=== PATIENT | male | born 1940 | race Two or more races ===

== ENCOUNTER 2018-06-30 14:00 | Inpatient (IN) | payer OTHER ==
[~2018-06-30] VITALS: Ht 170.2 cm; Wt 68.0 kg
[2018-06-30] MEDS ORDERED: PROTONIX40 M1 PO (14:40)
[2018-06-30] MEDS ORDERED: CARAFATE1 GM PO (14:40)
[2018-07-04] MEDS ORDERED: PANTOPRAZOLE SO40 MG PO (11:29)
== END 2018-07-04 13:03 | disposition home or self-care (01) | DRG 811 ==
LOC: ER 14:00 → MEDI 07-01 13:08 → SEC-K 07-01 13:08 → MEDI 07-01 15:38
PROC: 30233N1 Transfusion of Nonautologous Red Blood Cells into Peripheral Vein, Percutaneous Approach (ICD-10-PCS; 2018-07-01)
PROC: BW24Y0Z Computerized Tomography (CT Scan) of Chest and Abdomen using Other Contrast, Unenhanced and Enhanced (ICD-10-PCS; principal; 2018-07-02)
PROC: 0W3P8ZZ Control Bleeding in Gastrointestinal Tract, Via Natural or Artificial Opening Endoscopic (ICD-10-PCS; 2018-07-02)
DX: D50.0 Iron deficiency anemia secondary to blood loss (chronic) (principal); K25.0 Acute gastric ulcer with hemorrhage; C16.8 Malignant neoplasm of overlapping sites of stomach; I10 Essential (primary) hypertension; K80.80 Other cholelithiasis without obstruction; K76.0 Fatty (change of) liver, not elsewhere classified; C61 Malignant neoplasm of prostate

== ENCOUNTER → 2018-07-09 | Outpatient (CLI) | payer OTHER ==
[~2018-07-09] MED LIST: CARAFATE1 GM PO; PANTOPRAZOLE SO40 MG PO; PROTONIX40 M1 PO
== END | disposition home or self-care (01) ==
LOC: NUCLEAR 05-28 14:30
DX: D61.9 Aplastic anemia, unspecified (principal); D50.0 Iron deficiency anemia secondary to blood loss (chronic); C61 Malignant neoplasm of prostate; K25.7 Chronic gastric ulcer without hemorrhage or perforation; M81.0 Age-related osteoporosis without current pathological fracture; K90.89 Other intestinal malabsorption; K91.2 Postsurgical malabsorption, not elsewhere classified
CPT/HCPCS: 78816; A9552

== ENCOUNTER 2019-03-16 09:47 | Outpatient (CLI) | payer OTHER | END 2019-03-16 11:10 | disposition home or self-care (01) | LOC: SONOGRAMA 09:47 | DX: E04.1 Nontoxic single thyroid nodule (principal) ==

== ENCOUNTER 2019-07-21 08:07 | Outpatient (CLI) | payer OTHER ==
[2019-07-22] MEDS ORDERED: GAVISCON 80-141 EACH (19:02)
[2019-07-22] MEDS ORDERED: ABATRACE CAPSU1 EACH (19:05)
== END 2019-07-21 08:12 | disposition home or self-care (01) ==
LOC: NUCLEAR 08:07
DX: C16.2 Malignant neoplasm of body of stomach (principal); E86.0 Dehydration
CPT/HCPCS: 78815; A9552

== ENCOUNTER 2019-07-22 18:32 | Emergency (ER) | payer OTHER ==
[~2019-07-22] VITALS: Ht 162.6 cm; Wt 62.1 kg
[2019-07-22] MEDS ORDERED: GAVISCON 80-141 EACH (19:02)
[2019-07-22] MEDS ORDERED: ABATRACE CAPSU1 EACH (19:05)
== END 2019-07-22 22:36 | disposition home or self-care (01) ==
LOC: ER 18:32
DX: G89.3 Neoplasm related pain (acute) (chronic) (principal); C16.9 Malignant neoplasm of stomach, unspecified; R10.13 Epigastric pain

== ENCOUNTER 2019-08-24 08:56 | Inpatient (IN) | payer OTHER ==
[~2019-08-24] VITALS: Ht 167.6 cm; Wt 62.6 kg
[~2019-08-24 08:56] MED LIST changes: +ABATRACE CAPSU1 EACH; +GAVISCON 80-141 EACH
--- NOTE | 2019-08-24 09:16 | NUR ---
MASCULINO DE 78 ANOS DE EDAD SE OBSERVA ALERTA, ORIENTADO X3, CONCIENTE, PALIDO CANSADO Y DEBIL. REFIERE MAREOS, Y TENER LA HGB 7.4MG/DL. REFIERE QUE DR. WASHBURN, INTERNISTA LO REFIRIO A JANY DE EMERGENCIAS. SE LE COLOCA MASCARILLA PROTECTIVA, SE TRASLADA AL AREA DE OBSERVACION #12 Y SE LE NOTIFICA A DR. RANGEL SOBRE EL PACIENTE.
[2019-08-26] MEDS ORDERED: CARAFATE1 GM/10 ML PO (14:38)
[2019-08-26] MEDS ORDERED: Neurin-Sl Tablet Sl SL (14:39)
== END 2019-08-26 15:39 | disposition home or self-care (01) | DRG 384 ==
LOC: ER 08:56 → MEDI 14:54 → SEC-K 14:54 → MEDI 22:08
PROVIDERS: ADMIT Internal Medicine Geriatric Medicine
PROC: BB24ZZZ Computerized Tomography (CT Scan) of Bilateral Lungs (ICD-10-PCS; 2019-08-24)
PROC: 30233N1 Transfusion of Nonautologous Red Blood Cells into Peripheral Vein, Percutaneous Approach (ICD-10-PCS; 2019-08-24)
PROC: 0DB68ZX Excision of Stomach, Via Natural or Artificial Opening Endoscopic, Diagnostic (ICD-10-PCS; principal; 2019-08-26)
DX: K25.3 Acute gastric ulcer without hemorrhage or perforation (principal); C16.8 Malignant neoplasm of overlapping sites of stomach; J90 Pleural effusion, not elsewhere classified; D50.0 Iron deficiency anemia secondary to blood loss (chronic)

== ENCOUNTER 2019-08-28 08:28 | Emergency (ER) | payer OTHER ==
[~2019-08-28] VITALS: Ht 167.6 cm; Wt 62.1 kg
[~2019-08-28 08:28] MED LIST changes: +CARAFATE1 GM/10 ML PO; +Neurin-Sl Tablet Sl SL
== END 2019-08-28 12:58 | disposition home or self-care (01) ==
LOC: ER 08:28
DX: B34.9 Viral infection, unspecified (principal); J32.8 Other chronic sinusitis

== ENCOUNTER 2019-08-31 13:36 | Emergency (ER) | payer OTHER ==
[~2019-08-31] VITALS: Ht 167.6 cm; Wt 63.0 kg
== END 2019-08-31 19:54 | disposition home or self-care (01) ==
LOC: ER 13:36
DX: K62.5 Hemorrhage of anus and rectum (principal); R10.31 Right lower quadrant pain; R10.32 Left lower quadrant pain; J90 Pleural effusion, not elsewhere classified; K80.80 Other cholelithiasis without obstruction

== ENCOUNTER 2020-01-19 14:57 | Inpatient (IN) | payer OTHER ==
[~2020-01-19] VITALS: Ht 172.7 cm; Wt 61.2 kg
--- NOTE | 2020-01-19 15:16 | NUR ---
PACIENTE ALERTA Y ORIENTADO X3. REFIERE VENIR POR QUE DESDE ZEUS ESTA CON VOMITOS, NAUSEAS Y DOLOR EN EL FLANCO DERECHO. PACIENTE REFIERE EN LAS ULTIMAS 24 HORAS MO PRESENTADO MAS DE CUATRO VOMITOS Y NO MO PODIDO INGERIR NADA. SE UBICA EN RONAL CON BARANDAS ELEVADAS.
--- NOTE | 2020-01-19 17:56 | NUR ---
EVALUA PTE. SE ORIENTA A PTE SOBRE TX MEDICO. PTE REFIERE COMPRENDER. SE REALIZAN MUESTRAS DE LABORATORIO BAJO MEDIDAS ASEPTICAS. SE ADMINISTRAN MEDICAMENTOS TORY ORDEN MEDICA. SE NOTIFICA CT.
[2020-01-20] MEDS ORDERED: SYSTANE ULTRA 010 ML (15:36)
[2020-01-20] MEDS ORDERED: KETOTIFEN FUMARA5 ML (15:36)
[2020-01-20] MEDS ORDERED: ABANEU-SL TABL1 EACH (15:37)
[2020-01-22] MEDS ORDERED: CARAFATE1 GM/10 ML PO (10:30)
[2020-01-22] MEDS ORDERED: PROTONIX40 MG PO (10:30)
[2020-01-22] MEDS ORDERED: ABANEU-SL TABL1 EACH PO (10:30)
== END 2020-01-22 13:39 | disposition home or self-care (01) | DRG 446 ==
LOC: ER 14:57 → SEC-K 21:09 → SURH 23:10
PROVIDERS: ADMIT Internal Medicine Geriatric Medicine; ATTEND Internal Medicine Geriatric Medicine
DX: K80.00 Calculus of gallbladder with acute cholecystitis without obstruction (principal); D69.6 Thrombocytopenia, unspecified; Z98.0 Intestinal bypass and anastomosis status; Z85.028 Personal history of other malignant neoplasm of stomach; Z53.29 Procedure and treatment not carried out because of patient's decision for other reasons

== ENCOUNTER 2020-01-28 08:47 | Inpatient (IN) | payer OTHER ==
[~2020-01-28] VITALS: Ht 165.1 cm; Wt 58.5 kg
[~2020-01-28 08:47] MED LIST changes: +ABANEU-SL TABL1 EACH; +ABANEU-SL TABL1 EACH PO; +KETOTIFEN FUMARA5 ML; +PROTONIX40 MG PO; +SYSTANE ULTRA 010 ML
--- NOTE | 2020-01-28 09:04 | NUR ---
PTE ALERTA Y ORIENTADO X 3 ESFERAS, REFIERE VOMITOS HACE 3 ADAMS APROXIMADAMENTE. PTE INDICA FUE DADO DE CARLOS EL SABADO YA QUE TENIA PROBLEMAS CON LA VESICULA. SE UBICA EN AREA DE OBSERVACION.
--- NOTE | 2020-01-28 09:49 | NUR ---
PACIENTE EALERTA EVALUADO POR EL DR. CHRISTINE , MISS. [place] DELMI MUESTRAS CON NELLIE MEIDDAS ASEPTICAS , SE LE ADMINTRAN MEDICAMNTO Y SE MANTIENENE OBSERVACION POR CAMBIOS EN POSADAS CONDICON.
--- NOTE | 2020-01-28 12:50 | NUR ---
SE ORIENTA A PACIENTE SOBRE PROCESO DE CARLOS. PACIENTE REFIERE NO TOLERA NADA EN [place]O. SE NOTIFICA A DR. IYER Y SE ORIENTA SOBRE INGERIR ALIMENTOS PARA DILLON SI TOLERA.
--- NOTE | 2020-01-28 13:39 | NUR ---
PACIENTE REFIERE INGERIO ALIMENTOS Y COMENZO A VOMITAR.
--- NOTE | 2020-01-28 15:32 | NUR ---
SE RECIBE PTE ALERTA Y ORIENTADO X 3 ESFERAS EN CAMA CON BARANDAS ELEVADAS POR SEGURIDAD. BUEN PATRON RESPIRATORIO. RECIBIENDO IV'S 0.9NSS BAJANDO A 150ML/HR AREA DE VENOPUNCION EN BRAZO DERECHO AREA PATTI DE EDEMA Y ERITEMA. PENDIENTE CONSULTA CON . SE MANTIENE EN OBSERVACION POR CAMBIOS EN CONDICION MEDICA.
[2020-02-08] MEDS ORDERED: PROTONIX40 MG PO (14:05)
[2020-02-08] MEDS ORDERED: CARAFATE1 GM/10 ML PO (14:05)
[2020-02-08] MEDS ORDERED: GAS RELIEF125 MG PO (14:05)
[2020-02-08] MEDS ORDERED: INTESTINEX680 M1 PO (14:05)
[2020-02-08] MEDS ORDERED: LIDODERM1 EACH TOP (14:05)
[2020-02-08] MEDS ORDERED: PEPCID AC20 MG PO (14:05)
== END 2020-02-08 16:59 | disposition home or self-care (01) | DRG 445 ==
LOC: ER 08:47 → MEDJ 16:12 → MEDI 16:12
PROVIDERS: ADMIT Internal Medicine Geriatric Medicine; ATTEND Internal Medicine Geriatric Medicine
PROC: 05HY33Z Insertion of Infusion Device into Upper Vein, Percutaneous Approach (ICD-10-PCS; 2020-01-29)
PROC: 0DJ08ZZ Inspection of Upper Intestinal Tract, Via Natural or Artificial Opening Endoscopic (ICD-10-PCS; 2020-01-31)
PROC: 0DJ08ZZ Inspection of Upper Intestinal Tract, Via Natural or Artificial Opening Endoscopic (ICD-10-PCS; 2020-02-02)
PROC: BW21YZZ Computerized Tomography (CT Scan) of Abdomen and Pelvis using Other Contrast (ICD-10-PCS; principal; 2020-02-04)
PROC: CF141ZZ Planar Nuclear Medicine Imaging of Gallbladder using Technetium 99m (Tc-99m) (ICD-10-PCS; 2020-02-07)
DX: K80.20 Calculus of gallbladder without cholecystitis without obstruction (principal); K31.1 Adult hypertrophic pyloric stenosis; C16.9 Malignant neoplasm of stomach, unspecified; M81.0 Age-related osteoporosis without current pathological fracture; M54.5 Low back pain; R11.2 Nausea with vomiting, unspecified; E86.0 Dehydration; C61 Malignant neoplasm of prostate; D64.9 Anemia, unspecified; R10.13 Epigastric pain; Z98.0 Intestinal bypass and anastomosis status

== ENCOUNTER 2020-03-21 13:08 | Emergency (ER) | payer OTHER ==
[~2020-03-21] VITALS: Ht 167.6 cm; Wt 57.2 kg
[~2020-03-21 13:08] MED LIST changes: +GAS RELIEF125 MG PO; +INTESTINEX680 M1 PO; +LIDODERM1 EACH TOP; +PEPCID AC20 MG PO
== END 2020-03-22 13:17 | disposition home or self-care (01) ==
LOC: ER 13:08
DX: E86.0 Dehydration (principal); R11.2 Nausea with vomiting, unspecified; Z85.00 Personal history of malignant neoplasm of unspecified digestive organ

== ENCOUNTER 2020-04-01 18:06 | Emergency (ER) | payer OTHER ==
[~2020-04-01] VITALS: Ht 162.6 cm; Wt 59.0 kg
[2020-04-02] MEDS ORDERED: ONDANSETRON ODT4 MG SL (06:35)
[2020-04-02] MEDS ORDERED: PEPCID COMPLET1 EACH PO (06:35)
== END 2020-04-02 09:21 | disposition home or self-care (01) ==
LOC: ER 18:06
DX: E86.0 Dehydration (principal); C16.9 Malignant neoplasm of stomach, unspecified; R10.84 Generalized abdominal pain; R11.2 Nausea with vomiting, unspecified

== ENCOUNTER 2020-10-12 10:06 | Outpatient (CLI) | payer OTHER ==
[~2020-10-12 10:06] MED LIST changes: +ONDANSETRON ODT4 MG SL; +PEPCID COMPLET1 EACH PO
== END 2020-10-12 10:07 | disposition home or self-care (01) ==
LOC: NUCLEAR 10:06
PROVIDERS: ATTEND Internal Medicine Hematology & Oncology
DX: C16.2 Malignant neoplasm of body of stomach (principal); E86.0 Dehydration; D50.0 Iron deficiency anemia secondary to blood loss (chronic); M80.00XD Age-related osteoporosis with current pathological fracture, unspecified site, subsequent encounter for fracture with routine healing; S32.010D Wedge compression fracture of first lumbar vertebra, subsequent encounter for fracture with routine healing
CPT/HCPCS: 78815; A9552

== ENCOUNTER 2021-04-07 13:47 | Emergency (ER) | payer OTHER ==
[~2021-04-07] VITALS: Ht 167.6 cm; Wt 54.9 kg
[2021-04-08] MEDS ORDERED: ZOFRAN8 MG PO (16:39)
[2021-04-08] MEDS ORDERED: CARAFATE1 GM/10 ML PO (16:39)
[2021-04-08] MEDS ORDERED: PROTONIX40 MG PO (16:39)
== END 2021-04-08 17:22 | disposition home or self-care (01) ==
LOC: ER 13:47
DX: K29.00 Acute gastritis without bleeding (principal); R11.2 Nausea with vomiting, unspecified; C16.2 Malignant neoplasm of body of stomach

== ENCOUNTER 2021-05-20 11:39 | Emergency (ER) | payer OTHER ==
[~2021-05-20] VITALS: Ht 167.6 cm; Wt 54.4 kg
[~2021-05-20 11:39] MED LIST changes: +ZOFRAN8 MG PO
== END 2021-05-20 17:17 | disposition home or self-care (01) ==
LOC: ER 11:39
DX: E86.0 Dehydration (principal); E87.8 Other disorders of electrolyte and fluid balance, not elsewhere classified; C16.9 Malignant neoplasm of stomach, unspecified; R11.11 Vomiting without nausea; R10.13 Epigastric pain

== ENCOUNTER 2021-06-15 10:09 | Outpatient (CLI) | payer OTHER | END 2021-06-15 10:16 | disposition home or self-care (01) | LOC: RAD 10:09 | PROVIDERS: ATTEND Internal Medicine | DX: M54.6 Pain in thoracic spine (principal); M54.2 Cervicalgia; M54.59 Other low back pain ==

== ENCOUNTER 2021-06-29 13:45 | Inpatient (IN) | payer OTHER ==
[~2021-06-29] VITALS: Ht 167.6 cm; Wt 54.4 kg
[2021-07-05] MEDS ORDERED: FAMOTIDINE20 MG (15:15)
[2021-07-05] MEDS ORDERED: GABAPENTIN100 M2 (15:15)
[2021-07-05] MEDS ORDERED: METOCLOPRAMIDE10 MG (15:16)
[2021-07-05] MEDS ORDERED: ARTHRITIS PAIN650 M1 (15:16)
[2021-07-05] MEDS ORDERED: RESTORIL15 MG (15:16)
[2021-07-06] MEDS ORDERED: PROTONIX40 MG PO (12:18)
[2021-07-06] MEDS ORDERED: FAMOTIDINE20 MG PO (12:18)
[2021-07-06] MEDS ORDERED: SPIRONOLACTONE25 MG PO (12:18)
[2021-07-06] MEDS ORDERED: CARAFATE1 GM PO (12:18)
[2021-07-06] MEDS ORDERED: ZOFRAN8 MG PO (12:18)
[2021-07-06] MEDS ORDERED: ABANEU-SL TABL1 EACH SL (12:18)
[2021-07-06] MEDS ORDERED: METOCLOPRAMIDE10 MG PO (12:18)
== END 2021-07-06 14:42 | disposition home or self-care (01) | DRG 641 ==
LOC: ER 13:45 → MEDI 21:09 → MEDJ 21:09
PROVIDERS: ADMIT Internal Medicine Geriatric Medicine; ATTEND Internal Medicine Geriatric Medicine
PROC: 05HY33Z Insertion of Infusion Device into Upper Vein, Percutaneous Approach (ICD-10-PCS; principal; 2021-06-29)
PROC: BW2110Z Computerized Tomography (CT Scan) of Abdomen and Pelvis using Low Osmolar Contrast, Unenhanced and Enhanced (ICD-10-PCS; 2021-06-30)
PROC: 0W9G3ZZ Drainage of Peritoneal Cavity, Percutaneous Approach (ICD-10-PCS; 2021-07-02)
PROC: 0DB58ZX Excision of Esophagus, Via Natural or Artificial Opening Endoscopic, Diagnostic (ICD-10-PCS; 2021-07-03)
PROC: 0DB68ZX Excision of Stomach, Via Natural or Artificial Opening Endoscopic, Diagnostic (ICD-10-PCS; 2021-07-03)
PROC: 0DBA8ZX Excision of Jejunum, Via Natural or Artificial Opening Endoscopic, Diagnostic (ICD-10-PCS; 2021-07-03)
PROC: BW30Y0Z Magnetic Resonance Imaging (MRI) of Abdomen using Other Contrast, Unenhanced and Enhanced (ICD-10-PCS; 2021-07-04)
DX: E86.0 Dehydration (principal); C16.9 Malignant neoplasm of stomach, unspecified; K76.6 Portal hypertension; B19.10 Unspecified viral hepatitis B without hepatic coma; K31.1 Adult hypertrophic pyloric stenosis; R18.8 Other ascites; D64.9 Anemia, unspecified; K20.80 Other esophagitis without bleeding; Z98.0 Intestinal bypass and anastomosis status; R11.10 Vomiting, unspecified; Z20.822 Contact with and (suspected) exposure to COVID-19
CPT/HCPCS: 74182

== ENCOUNTER 2021-07-29 14:21 | Inpatient (IN) | payer OTHER ==
[~2021-07-29] VITALS: Ht 167.6 cm; Wt 53.5 kg
[~2021-07-29 14:21] MED LIST changes: +ABANEU-SL TABL1 EACH SL; +ARTHRITIS PAIN650 M1; +FAMOTIDINE20 MG; +FAMOTIDINE20 MG PO; +GABAPENTIN100 M2; +METOCLOPRAMIDE10 MG; +METOCLOPRAMIDE10 MG PO; +RESTORIL15 MG; +SPIRONOLACTONE25 MG PO
[2021-07-31] MEDS ORDERED: GABAPENTIN100 M2 (11:08)
[2021-07-31] MEDS ORDERED: SOD FER GL62.5 MG/5 (11:08)
[2021-07-31] MEDS ORDERED: PANTOPRAZOLE SO40 MG (11:08)
[2021-07-31] MEDS ORDERED: ONDANSETRON ODT8 MG (11:08)
[2021-07-31] MEDS ORDERED: METOCLOPRAMIDE10 MG (11:08)
[2021-07-31] MEDS ORDERED: BUSPIRONE HCL5 MG (11:09)
[2021-07-31] MEDS ORDERED: ARTHRITIS PAIN650 M1 (11:09)
[2021-07-31] MEDS ORDERED: METHYLPREDNISOL40 MG (11:09)
[2021-07-31] MEDS ORDERED: DIPHENHYDR50 MG/1 M1 (11:09)
[2021-07-31] MEDS ORDERED: TRAZODONE HCL50 MG (11:09)
[2021-07-31] MEDS ORDERED: ADULT GLYCERIN1 EACH (11:09)
[2021-07-31] MEDS ORDERED: RESTORIL15 MG (11:10)
[2021-07-31] MEDS ORDERED: PROLIA60 MG/1 ML (11:10)
[2021-07-31] MEDS ORDERED: LIDOCAINE1 EACH (11:10)
[2021-08-01] MEDS ORDERED: SPIRONOLACTONE25 MG PO (13:36)
[2021-08-01] MEDS ORDERED: PANTOPRAZOLE SO40 MG PO (13:36)
[2021-08-01] MEDS ORDERED: LASIX20 MG PO (13:36)
[2021-08-01] MEDS ORDERED: CARAFATE1 GM PO (13:36)
[2021-08-01] MEDS ORDERED: FAMOTIDINE20 MG PO (13:36)
== END 2021-08-01 14:59 | disposition home or self-care (01) | DRG 641 ==
LOC: ER 14:21 → MEDI 07-30 11:21
PROVIDERS: ADMIT Internal Medicine Geriatric Medicine; ATTEND Internal Medicine Geriatric Medicine
PROC: 0W9G3ZX Drainage of Peritoneal Cavity, Percutaneous Approach, Diagnostic (ICD-10-PCS; principal; 2021-07-31)
DX: E86.0 Dehydration (principal); R18.8 Other ascites; C16.9 Malignant neoplasm of stomach, unspecified; C78.7 Secondary malignant neoplasm of liver and intrahepatic bile duct; D64.9 Anemia, unspecified; E87.8 Other disorders of electrolyte and fluid balance, not elsewhere classified; Z20.822 Contact with and (suspected) exposure to COVID-19
CPT/HCPCS: 72196; 74182

== ENCOUNTER 2021-08-12 12:31 | Inpatient (IN) | payer OTHER ==
[~2021-08-12] VITALS: Ht 167.6 cm; Wt 54.4 kg
[~2021-08-12 12:31] MED LIST changes: +ADULT GLYCERIN1 EACH; +BUSPIRONE HCL5 MG; +DIPHENHYDR50 MG/1 M1; +LASIX20 MG PO; +LIDOCAINE1 EACH; +METHYLPREDNISOL40 MG; +ONDANSETRON ODT8 MG; +PANTOPRAZOLE SO40 MG; +PROLIA60 MG/1 ML; +SOD FER GL62.5 MG/5; +TRAZODONE HCL50 MG
--- NOTE | 2021-08-12 13:05 | NUR ---
SE RECIBE PACIENTE ALERTA, ORIENTADO X 3 ESFERAS REFIERE TENER VOMITOS DESDE ZEUS, SE ESTIMAN S/V SE UBICA EN AREA DE OBSERVACION.
--- NOTE | 2021-08-12 15:33 | NUR ---
SE REALIZA CANALIZACION Y DELMI DE MUESTRAS A PACIENTE BAJOMEDIDAS ASEPTICAS Y DE SEGURIDAD. SE ADMINISTRAN MEDICAMENTOS TORY ORDEN MEDICA. SE ORIENTA A PACIENTE Y FAMILAIR ACERCA DEL TRATAMIENTO OFRECIDO EN JANY DE EMERGENCIAS. TRATAMIENTO OFRECDIO POR MISS Tello ALMANZA. SE MANTIENE PACIENTE EN OBSERVACION
--- NOTE | 2021-08-13 07:07 | NUR ---
SE RECIBE PACIENTE ALERTA Y ORIENTADO X 3, IV FLUIDS PATENTES PATTI DE EDEMAS Y ENROJECIMIENTOS. PACIENTE EN AREA DE AISLAMIENTO POR COVID +. PENDIENTE CONSULTA CON DRA PHILIPPE.
[2021-08-15] MEDS ORDERED: VITAMIN C500 M1 PO (17:39)
[2021-08-15] MEDS ORDERED: CARAFATE1 GM PO (17:39)
[2021-08-15] MEDS ORDERED: ZINC SULFATE50 M1 PO (17:39)
[2021-08-15] MEDS ORDERED: PANTOPRAZOLE SO40 MG PO (17:39)
[2021-08-15] MEDS ORDERED: MELATONIN5 M2 PO (17:39)
[2021-08-15] MEDS ORDERED: ZOFRAN8 MG PO (17:39)
== END 2021-08-15 17:44 | disposition home or self-care (01) | DRG 178 ==
LOC: ER 12:31 → MEDJ 08-13 18:52
PROVIDERS: ADMIT Internal Medicine Geriatric Medicine; ATTEND Internal Medicine Geriatric Medicine
PROC: BW21YZZ Computerized Tomography (CT Scan) of Abdomen and Pelvis using Other Contrast (ICD-10-PCS; 2021-08-13)
PROC: 4A12X4Z Monitoring of Cardiac Electrical Activity, External Approach (ICD-10-PCS; principal; 2021-08-14)
DX: U07.1 COVID-19 (principal); C16.9 Malignant neoplasm of stomach, unspecified; R18.8 Other ascites; K74.69 Other cirrhosis of liver; E86.0 Dehydration; E87.8 Other disorders of electrolyte and fluid balance, not elsewhere classified; R10.13 Epigastric pain; Z98.0 Intestinal bypass and anastomosis status

== ENCOUNTER 2021-09-12 15:33 | Inpatient (IN) | payer OTHER ==
[~2021-09-12] VITALS: Ht 167.6 cm
[~2021-09-12 15:33] MED LIST changes: +MELATONIN5 M2 PO; +VITAMIN C500 M1 PO; +ZINC SULFATE50 M1 PO
[2021-09-12] MEDS ORDERED: LASIX20 MG (16:45)
[2021-09-12] MEDS ORDERED: CLONAZEPAM0.5 MG (16:46)
[2021-09-12] MEDS ORDERED: PEPCID AC10 MG (16:46)
[2021-09-14] MEDS ORDERED: SPIRONOLACTONE25 MG (11:46)
[2021-09-14] MEDS ORDERED: ONDANSETRON ODT8 MG (11:46)
[2021-09-14] MEDS ORDERED: METOCLOPRAMIDE10 MG (11:46)
[2021-09-14] MEDS ORDERED: GABAPENTIN100 M2 (11:46)
[2021-09-14] MEDS ORDERED: DIPHENHYDR50 MG/1 M1 (11:47)
[2021-09-14] MEDS ORDERED: SOD FER GL62.5 MG/5 (11:47)
[2021-09-19] MEDS ORDERED: ABANEU-SL TABL1 EACH SL (13:03)
[2021-09-19] MEDS ORDERED: CARAFATE1 GM PO (13:03)
[2021-09-19] MEDS ORDERED: FAMOTIDINE20 MG PO (13:03)
[2021-09-19] MEDS ORDERED: MELATONIN5 M2 PO (13:03)
[2021-09-19] MEDS ORDERED: PRE PROTEIN1 EACH PO (13:03)
[2021-09-19] MEDS ORDERED: CLONAZEPAM0.5 MG PO (13:03)
[2021-09-19] MEDS ORDERED: PANTOPRAZOLE SO40 MG PO (13:03)
[2021-09-19] MEDS ORDERED: SPIRONOLACTONE25 MG PO (13:03)
== END 2021-09-19 13:49 | disposition home or self-care (01) | DRG 641 ==
LOC: ER 15:33 → MEDI 23:07
PROVIDERS: ADMIT Internal Medicine Geriatric Medicine; ATTEND Internal Medicine Geriatric Medicine
PROC: 02HV33Z Insertion of Infusion Device into Superior Vena Cava, Percutaneous Approach (ICD-10-PCS; 2021-09-13)
PROC: 0W9G30Z Drainage of Peritoneal Cavity with Drainage Device, Percutaneous Approach (ICD-10-PCS; principal; 2021-09-17)
DX: E86.0 Dehydration (principal); C16.9 Malignant neoplasm of stomach, unspecified; R18.8 Other ascites; K74.69 Other cirrhosis of liver; R10.13 Epigastric pain; D64.9 Anemia, unspecified; E87.8 Other disorders of electrolyte and fluid balance, not elsewhere classified; I10 Essential (primary) hypertension; C61 Malignant neoplasm of prostate; Z20.822 Contact with and (suspected) exposure to COVID-19; Z98.0 Intestinal bypass and anastomosis status

== ENCOUNTER 2021-09-24 22:44 | Inpatient (IN) | payer OTHER ==
[~2021-09-24] VITALS: Ht 167.6 cm; Wt 54.4 kg
[~2021-09-24 22:44] MED LIST changes: +CLONAZEPAM0.5 MG; +CLONAZEPAM0.5 MG PO; +LASIX20 MG; +PEPCID AC10 MG; +PRE PROTEIN1 EACH PO; +SPIRONOLACTONE25 MG
[2021-09-26] MEDS ORDERED: SPIRONOLACTONE25 MG (09:41)
[2021-09-26] MEDS ORDERED: GABAPENTIN100 M2 (09:41)
[2021-09-26] MEDS ORDERED: FUROSEMIDE20 MG (09:41)
[2021-09-26] MEDS ORDERED: CLONAZEPAM0.5 MG (09:41)
[2021-09-26] MEDS ORDERED: ONDANSETRON ODT8 MG (09:42)
[2021-10-05] MEDS ORDERED: SPIRONOLACTONE25 MG PO (13:43)
[2021-10-05] MEDS ORDERED: METOCLOPRAMIDE H5 MG PO (13:43)
[2021-10-05] MEDS ORDERED: INTEGRA F CAPS1 EACH PO (13:43)
[2021-10-05] MEDS ORDERED: FUROSEMIDE20 MG PO (13:43)
[2021-10-05] MEDS ORDERED: ABANEU-SL TABL1 EACH SL (13:43)
[2021-10-05] MEDS ORDERED: PANTOPRAZOLE SO40 MG PO (13:43)
[2021-10-05] MEDS ORDERED: ONDANSETRON ODT8 MG PO (13:43)
[2021-10-05] MEDS ORDERED: ULTRAM50 MG PO (13:44)
== END 2021-10-05 19:46 | disposition home or self-care (01) | DRG 641 ==
LOC: ER 22:44 → MEDI 09-25 20:45 → MEDJ 10-02 18:33
PROVIDERS: ADMIT Internal Medicine Geriatric Medicine; ATTEND Internal Medicine Geriatric Medicine
PROC: 02HV33Z Insertion of Infusion Device into Superior Vena Cava, Percutaneous Approach (ICD-10-PCS; 2021-09-26)
PROC: 0W9J30Z Drainage of Pelvic Cavity with Drainage Device, Percutaneous Approach (ICD-10-PCS; principal; 2021-10-02)
PROC: B44FZZZ Ultrasonography of Right Lower Extremity Arteries (ICD-10-PCS; 2021-10-05)
DX: E86.0 Dehydration (principal); R18.8 Other ascites; C16.9 Malignant neoplasm of stomach, unspecified; C61 Malignant neoplasm of prostate; K76.89 Other specified diseases of liver; R10.13 Epigastric pain; R11.0 Nausea; D64.9 Anemia, unspecified; E87.8 Other disorders of electrolyte and fluid balance, not elsewhere classified; Z95.0 Presence of cardiac pacemaker; Z20.822 Contact with and (suspected) exposure to COVID-19

== ENCOUNTER 2021-10-18 20:21 | Inpatient (IN) | payer OTHER ==
[~2021-10-18] VITALS: Ht 167.6 cm; Wt 54.4 kg
[~2021-10-18 20:21] MED LIST changes: +FUROSEMIDE20 MG; +FUROSEMIDE20 MG PO; +INTEGRA F CAPS1 EACH PO; +METOCLOPRAMIDE H5 MG PO; +ONDANSETRON ODT8 MG PO; +ULTRAM50 MG PO
[2021-10-19] MEDS ORDERED: MELATONIN5 M2 (13:26)
[2021-10-19] MEDS ORDERED: DIPHENHYDR50 MG/1 M1 (13:27)
[2021-10-19] MEDS ORDERED: METHYLPREDNISOL40 MG (13:27)
[2021-10-19] MEDS ORDERED: SOD FER GL62.5 MG/5 (13:27)
[2021-10-24] MEDS ORDERED: MELATONIN10 M2 PO (12:39)
[2021-10-24] MEDS ORDERED: METOCLOPRAMIDE H5 MG PO (12:39)
[2021-10-24] MEDS ORDERED: ULTRAM50 MG PO (12:39)
[2021-10-24] MEDS ORDERED: SPIRONOLACTONE25 MG PO (12:39)
[2021-10-24] MEDS ORDERED: CARAFATE1 GM PO (12:39)
[2021-10-24] MEDS ORDERED: FUROSEMIDE20 MG PO (12:39)
[2021-10-24] MEDS ORDERED: PANTOPRAZOLE SO40 MG PO (12:39)
[2021-10-24] MEDS ORDERED: FAMOTIDINE20 MG PO (12:39)
[2021-10-24] MEDS ORDERED: ABANEU-SL TABL1 EACH SL (12:39)
[2021-10-24] MEDS ORDERED: ONDANSETRON ODT8 MG PO (12:39)
== END 2021-10-24 13:42 | disposition home or self-care (01) | DRG 375 ==
LOC: ER 20:21 → MEDJ 10-19 09:48 → SEC-K 10-19 09:48 → MEDJ 10-19 15:16
PROVIDERS: ADMIT Internal Medicine Geriatric Medicine; ATTEND Internal Medicine Geriatric Medicine
PROC: 3E0436Z Introduction of Nutritional Substance into Central Vein, Percutaneous Approach (ICD-10-PCS; 2021-10-19)
PROC: 0W9G3ZZ Drainage of Peritoneal Cavity, Percutaneous Approach (ICD-10-PCS; principal; 2021-10-22)
DX: C16.9 Malignant neoplasm of stomach, unspecified (principal); R18.0 Malignant ascites; K31.1 Adult hypertrophic pyloric stenosis; C61 Malignant neoplasm of prostate; E86.0 Dehydration; Z98.0 Intestinal bypass and anastomosis status; Z20.822 Contact with and (suspected) exposure to COVID-19; Z95.9 Presence of cardiac and vascular implant and graft, unspecified

== ENCOUNTER 2021-10-28 13:48 | Emergency (ER) | payer OTHER ==
[~2021-10-28] VITALS: Ht 165.1 cm; Wt 49.9 kg
[~2021-10-28 13:48] MED LIST changes: +MELATONIN10 M2 PO; +MELATONIN5 M2
== END 2021-10-28 19:26 | disposition home or self-care (01) ==
LOC: ER 13:48
DX: R10.13 Epigastric pain (principal); R11.2 Nausea with vomiting, unspecified; C16.9 Malignant neoplasm of stomach, unspecified; Z88.6 Allergy status to analgesic agent

== ENCOUNTER 2021-11-02 11:56 | Inpatient (IN) | payer OTHER ==
[~2021-11-02] VITALS: Ht 167.6 cm; Wt 54.4 kg
[2021-11-06] MEDS ORDERED: MELATONIN5 M2 (11:47)
[2021-11-06] MEDS ORDERED: FUROSEMIDE20 MG (11:47)
[2021-11-06] MEDS ORDERED: METOCLOPRAMIDE H5 MG (11:47)
[2021-11-06] MEDS ORDERED: GABAPENTIN100 M2 (11:47)
[2021-11-06] MEDS ORDERED: SPIRONOLACTONE25 MG (11:47)
[2021-11-06] MEDS ORDERED: METHYLPREDNISOL40 MG (11:48)
[2021-11-06] MEDS ORDERED: SOD FER GL62.5 MG/5 (11:48)
[2021-11-06] MEDS ORDERED: CLONAZEPAM0.5 MG (11:48)
[2021-11-06] MEDS ORDERED: DIPHENHYDR50 MG/1 M1 (11:48)
[2021-11-06] MEDS ORDERED: TRAZODONE HCL50 MG (11:49)
[2021-11-06] MEDS ORDERED: BUSPIRONE HCL5 MG (11:49)
[2021-11-06] MEDS ORDERED: ADULT GLYCERIN1 EACH (11:49)
[2021-11-06] MEDS ORDERED: ARTHRITIS PAIN650 M1 (11:49)
[2021-12-07] MEDS ORDERED: METOCLOPRAMIDE H5 MG PO (14:05)
[2021-12-07] MEDS ORDERED: CLONAZEPAM0.5 MG PO (14:05)
[2021-12-07] MEDS ORDERED: HYOSCYAMINE0.125 M1 SL (14:05)
[2021-12-07] MEDS ORDERED: MELATONIN5 M2 PO (14:05)
[2021-12-07] MEDS ORDERED: PANTOPRAZOLE SO40 MG PO (14:05)
[2021-12-07] MEDS ORDERED: CARAFATE1 GM PO (14:05)
[2021-12-07] MEDS ORDERED: SPIRONOLACTONE25 MG PO (14:05)
[2021-12-07] MEDS ORDERED: LIDODERM1 EACH TOP (14:05)
[2021-12-07] MEDS ORDERED: FUROSEMIDE20 MG PO (14:05)
[2021-12-07] MEDS ORDERED: ONDANSETRON ODT4 MG PO (14:05)
== END 2021-12-07 15:14 | disposition home or self-care (01) | DRG 329 ==
LOC: ER 11:56 → MEDI 16:23 → SEC-K 16:23 → MEDI 20:46
PROVIDERS: Colon & Rectal Surgery; ADMIT Internal Medicine Geriatric Medicine; ATTEND Internal Medicine Geriatric Medicine
PROC: 0W9G30Z Drainage of Peritoneal Cavity with Drainage Device, Percutaneous Approach (ICD-10-PCS; 2021-11-13)
PROC: 0W9G30Z Drainage of Peritoneal Cavity with Drainage Device, Percutaneous Approach (ICD-10-PCS; 2021-11-21)
PROC: 0D1A0Z4 Bypass Jejunum to Cutaneous, Open Approach (ICD-10-PCS; principal; 2021-11-21 10:45)
PROC: 0W9J3ZZ Drainage of Pelvic Cavity, Percutaneous Approach (ICD-10-PCS; 2021-11-30)
PROC: BW30Y0Z Magnetic Resonance Imaging (MRI) of Abdomen using Other Contrast, Unenhanced and Enhanced (ICD-10-PCS; 2021-12-04)
PROC: BW2110Z Computerized Tomography (CT Scan) of Abdomen and Pelvis using Low Osmolar Contrast, Unenhanced and Enhanced (ICD-10-PCS; 2021-12-06)
DX: K31.1 Adult hypertrophic pyloric stenosis (principal); K65.1 Peritoneal abscess; E46 Unspecified protein-calorie malnutrition; R18.8 Other ascites; E86.0 Dehydration; D53.8 Other specified nutritional anemias; K31.89 Other diseases of stomach and duodenum; K29.60 Other gastritis without bleeding; R11.2 Nausea with vomiting, unspecified; R53.81 Other malaise; E88.09 Other disorders of plasma-protein metabolism, not elsewhere classified; E87.79 Other fluid overload; F43.20 Adjustment disorder, unspecified; E87.5 Hyperkalemia; Z90.3 Acquired absence of stomach [part of]; Z85.028 Personal history of other malignant neoplasm of stomach
CPT/HCPCS: 74182

== ENCOUNTER 2021-12-28 13:37 | Emergency (ER) | payer OTHER ==
[~2021-12-28] VITALS: Ht 167.6 cm; Wt 48.1 kg
[~2021-12-28 13:37] MED LIST changes: +HYOSCYAMINE0.125 M1 SL; +METOCLOPRAMIDE H5 MG; +ONDANSETRON ODT4 MG PO
== END 2021-12-28 21:47 | disposition home or self-care (01) ==
LOC: ER 13:37
DX: R10.9 Unspecified abdominal pain (principal); Z85.028 Personal history of other malignant neoplasm of stomach; Z93.4 Other artificial openings of gastrointestinal tract status; Z88.8 Allergy status to other drugs, medicaments and biological substances; Z20.822 Contact with and (suspected) exposure to COVID-19

== ENCOUNTER 2021-12-30 23:51 | Inpatient (IN) | payer OTHER ==
[~2021-12-30] VITALS: Ht 167.6 cm; Wt 45.4 kg
--- NOTE | 2021-12-31 00:19 | NUR ---
PTE ALERTA Y ORIENTADO X3 EN AMBULANCIA EN COMPANIA DE PARAMEDICOS. PARAMEDICOS REFIEREN QUE EL PTE ES TRANSFER DEL [facility]. PTE REFIERE QUE A PRESENTADO 6 VOMITOS DESDE HOY.
--- NOTE | 2021-12-31 01:21 | NUR ---
MS Stefano LORENZANA ORIENTA PTE SOBRE TX A SEGUIR, EL CUAL REFIERE ENTENDER. SE COLECTAN MUESTRAS Y CANALIZA PTE UTILIZANDO MEDIDAS ASEPTICAS. SE ADMINISTRAN MEDICAMENTOS TORY ORDEN MEDICA. SE HACE ENTREGA DE ENVASE PARA MUESTRA DE UA PEND.
--- NOTE | 2021-12-31 07:18 | NUR ---
PTE ALERTA Y ORIENTADO POR HUMAIRA ESFERAS CON BUEN PATRON RESPIRATORIO. SE ENCUENTRA EN CAMA BAJA, BARANDAS ELEVADAS Y TIMBRE ACCESIBLE. TIENE CANALIZACION PATENTE PATTI DE EDEMA Y ERITEMA. PENDIENTE PERCY X
[2022-01-03] MEDS ORDERED: DULCOLAX10 MG RECTAL (13:55)
[2022-01-03] MEDS ORDERED: LIDODERM1 EACH TOP (13:55)
[2022-01-03] MEDS ORDERED: JUVEN GT (13:55)
[2022-01-03] MEDS ORDERED: PANTOPRAZOLE SO40 MG PO (13:55)
[2022-01-03] MEDS ORDERED: CLONAZEPAM0.5 MG PO (13:55)
[2022-01-03] MEDS ORDERED: ONDANSETRON ODT4 MG PO (13:55)
== END 2022-01-03 18:45 | DRG 374 ==
LOC: ER 23:51 → SEC-K 12-31 14:32 → SURH 12-31 14:32 → MEDJ 12-31 19:55 → SEC-K 12-31 20:33 → SURH 12-31 23:42
PROVIDERS: ADMIT Internal Medicine Geriatric Medicine; ATTEND Internal Medicine Geriatric Medicine
PROC: 02HV33Z Insertion of Infusion Device into Superior Vena Cava, Percutaneous Approach (ICD-10-PCS; principal; 2022-01-02)
DX: C16.9 Malignant neoplasm of stomach, unspecified (principal); L89.103 Pressure ulcer of unspecified part of back, stage 3; K59.09 Other constipation; R10.13 Epigastric pain; E86.0 Dehydration; E87.8 Other disorders of electrolyte and fluid balance, not elsewhere classified; Z98.0 Intestinal bypass and anastomosis status; Z20.822 Contact with and (suspected) exposure to COVID-19; Z74.01 Bed confinement status

== ENCOUNTER 2022-01-06 10:05 | Inpatient (IN) | payer OTHER ==
[~2022-01-06] VITALS: Ht 165.1 cm; Wt 44.0 kg
[~2022-01-06 10:05] MED LIST changes: +DULCOLAX10 MG RECTAL; +JUVEN GT
[2022-01-06] MEDS ORDERED: CARAFATE1 GM PO (10:15)
[2022-01-06] MEDS ORDERED: ZOFRAN8 MG PO (10:15)
[2022-01-06] MEDS ORDERED: PEPCID AC20 MG PO (10:15)
[2022-01-07] MEDS ORDERED: ONDANSETRON ODT4 MG (08:05)
[2022-01-07] MEDS ORDERED: HYOSCYAMINE0.125 M1 (08:05)
[2022-01-07] MEDS ORDERED: PANTOPRAZOLE SO40 MG (08:06)
[2022-01-07] MEDS ORDERED: METOCLOPRAMIDE H5 MG (08:06)
[2022-01-07] MEDS ORDERED: JUVEN PACKET1 EAC1 (08:08)
[2022-01-14] MEDS ORDERED: LIDODERM1 EACH TOP (15:19)
[2022-01-14] MEDS ORDERED: LOVENOX40 MG/0.4 SUBCUTANEO (15:19)
== END 2022-01-18 13:06 | disposition home or self-care (01) | DRG 394 ==
LOC: ER 10:05 → SEC-K 23:12 → MEDI 01-07 13:52
PROVIDERS: ADMIT Internal Medicine Geriatric Medicine; ATTEND Internal Medicine Geriatric Medicine
PROC: 02HV33Z Insertion of Infusion Device into Superior Vena Cava, Percutaneous Approach (ICD-10-PCS; principal; 2022-01-08)
PROC: B54MZZZ Ultrasonography of Right Upper Extremity Veins (ICD-10-PCS; 2022-01-12)
DX: K94.13 Enterostomy malfunction (principal); C16.9 Malignant neoplasm of stomach, unspecified; N39.0 Urinary tract infection, site not specified; E46 Unspecified protein-calorie malnutrition; E86.0 Dehydration; D64.9 Anemia, unspecified; E16.1 Other hypoglycemia; I80.8 Phlebitis and thrombophlebitis of other sites; L89.151 Pressure ulcer of sacral region, stage 1; F43.23 Adjustment disorder with mixed anxiety and depressed mood; K63.89 Other specified diseases of intestine; Z20.822 Contact with and (suspected) exposure to COVID-19; B96.89 Other specified bacterial agents as the cause of diseases classified elsewhere; Z98.0 Intestinal bypass and anastomosis status